=== PATIENT | female | born 1955 | race Caucasian/White ===

== ENCOUNTER → 2017-09-10 | Outpatient (CLI) | payer OTHER ==
--- NOTE | 2017-09-10 11:58 | RADIOLOGY IMAGING REPORT ---
FACILITY: [facility] PATIENT NAME: Kaila Arias : 1955 MR: [id number] V: [id number] EXAM DATE: ORDERING PHYSICIAN: ALEX BURT TECHNOLOGIST: Location: [facility] Patient: Kaila Arias : 1955 Visit/Account:[id number] Date of Sevice: 09/10/2017 HAND COMPLETE RIGHT Given history: Previous fracture with returning pain in the second and third metacarpals. COMPARISON STUDIES: NONE FINDINGS: Osseous structures: No evidence of acute or subacute fractures. There is moderate foreshortening o f the fifth metacarpal which may be developmental rather than trauma related. Joints: Joint spaces well-maintained. There is very minimal osteophytosis seen in third and fifth DIP joints. Small osteophyte seen at the head of the first metacarpal. Joints otherwise unremarkabl e. There is ulnar negative variance. Soft tissues: normal . IMPRESSION: Minimal osteoarthrosis at the first MCP and several DIP joints. Exam otherwise unremarkable. Report Dictated By: Tony Hancock MD at 09/10/2017 11:50 AM Report E-Signed By: Tony Hancock MD at 09/10/2017 11:54 AM WSN:[id number]
== END ==
LOC: RAD 10:59
PROVIDERS: ATTEND Nurse Practitioner Family
DX: M19.041 Primary osteoarthritis, right hand (principal)

== ENCOUNTER 2017-09-19 13:58 | Inpatient (IN) | payer OTHER ==
[2017-09-19] VITALS (13 sets, daily range): BP systolic 94–134; BP diastolic 69–96; Ht 167.6 cm; Wt 94.8 kg
[~2017-09-19] VITALS: Ht 167.6 cm; Wt 94.8 kg
[2017-09-19] MEDS ORDERED: NS(*) 0.9% 500 ML BAG 500 ML IV ONE (14:07)
[2017-09-19] MEDS ORDERED: NALOXONE HCL 2 MG/2 ML SYR IVP ONE (14:10)
[2017-09-19 14:21] LABS: PLATELET COUNT, AUTOMATED 213 K/uL (150-450)
--- NOTE | 2017-09-19 14:24 | EKG ---
FACILITY: [facility] PATIENT NAME: DOUG ARCINIEGA : [id number] MR: [id number] V: [id number] EXAM DATE: ORDERING PHYSICIAN: GEORGETTE MENSAH TECHNOLOGIST: WILFREDO Test Reason : OD Blood Pressure : / mmHG Vent. Rate : 093 BPM Atrial Rate : 093 BPM P-R Int : 146 ms QRS Dur : 094 ms QT Int : 384 ms P-R-T Axes : 065 040 061 degrees QTc Int : 477 ms Sinus rhythm No acute appearing findings No previous ECGs available Confirmed by DIANE MILNER ([id number] on 09/19/2017 6:17:05 PM Referred By: RODRICK Confirmed By:DIANE MILNER
--- NOTE | 2017-09-19 14:52 | ER Report ---
History and Physical Time Seen By MD: 13:59 HPI/ROS CHIEF COMPLAINT: Intentional overdose. HISTORY OF PRESENT ILLNESS: Patient is a 62-year-old female who was found by her who had stepped out of the home for approximately one hour. Patient was found to be unresponsive with shallow breathing. Patient apparently ingested 12 tablets of 5 mg each oxycodone. Patient also drank approximately 8 ounces of vodka. History is limited as patient is extremely somnolent but does arouse to noxious stimuli. Most of the history initially was to obtain from the [employer] and artificial flower maker on scene. They report that the patient apparently has an issue with alcohol and this was brought up last evening by her and argument ensued. Patient did report to EMS that she was in a "dark frame of mind " and intentionally ingested the oxycodone pills to hurt herself. Upon arrival when EMS found her she was lying on a couch there is no evidence of trauma. Patient had shallow breathing 8 mg of intranasal Narcan was given patient did have a return of breathing. On the ride from the house to the emergency department and she became somnolent again and required additional 4 mg of Narcan. In the emergency department she was only arousable to noxious stimuli so 1 mg of Narcan was given intravenously and she is much more awake and alert now. Family is currently at the bedside and family members including the patient 's and daughter. They state that the initial EMS report is correct. has been on his may need times about her drinking although states that the argument last night was not heated or particularly caustic. REVIEW OF SYSTEMS: Unable to assess secondary to patient is obtunded Allergies: Coded Allergies: tomato (Verified Allergy, Unknown, 09/19/17) Home Meds Active Scripts Thiamine Hcl (VITAMIN B-1) 100 Mg Tablet, 100 MG PO QDAY, #30 TAB Prov:ADITYA MIR MD 09/20/17 Folic Acid (FOLIC ACID) 1 Mg Tablet, 1 MG PO QDAY, #30 TAB Prov:ADITYA MIR MD 09/20/17 Reported Medications Celecoxib (CELEBREX) 200 Mg Capsule, 200 MG PO QDAY, CAPSULE 09/19/17 Duloxetine HCl (Duloxetine HCl) 60 Mg Capsule. 09/19/17 Levothyroxine Sodium (LEVOTHYROXINE SODIUM) 88 Mcg Tablet, 88 MCG PO QDAY 09/19/17 Cholecalciferol (Vitamin D3) (VITAMIN D3) 5,000 Unit Tablet, 5000 UNIT PO 09/19/17 Discontinued Reported Medications Levothyroxine Sodium (LEVOTHYROXINE SODIUM) 100 Mcg Tablet, 100 MCG PO QDAY, TAB 09/19/17 Levothyroxine Sodium (LEVOTHYROXINE SODIUM) 100 Mcg Tablet, 88 MCG PO QDAY, TAB 09/19/17 Constitutional Vital Sign - Last 24 Hours 09/19/17 09/19/17 09/19/17 09/19/17 13:58 14:06 14:08 14:13 Pulse 94 97 B/P (MAP) 141/83 (102) Pulse Ox 98 O2 Flow Rate 15.0 09/19/17 09/19/17 09/19/17 09/19/17 14:18 14:23 14:28 14:30 Pulse 94 102 104 Resp 30 29 22 B/P (MAP) 124/100 (108) Pulse Ox 100 100 99 09/19/17 09/19/17 09/19/17 09/19/17 14:33 14:38 14:43 14:45 Pulse 104 ??? 103 Resp 20 18 25 B/P (MAP) 122/80 (94) 143/121 (128) Pulse Ox 100 97 96 09/19/17 09/19/17 09/19/17 09/19/17 14:48 14:50 14:53 14:58 Pulse 99 98 97 Resp 32 16 B/P (MAP) 127/115 (119) Pulse Ox 97 97 99 09/19/17 09/19/17 09/19/17 09/19/17 15:00 15:03 15:08 15:10 Pulse 97 92 Resp 14 12 B/P (MAP) 140/69 (92) 135/88 (104) Pulse Ox 96 97 09/19/17 09/19/17 09/19/17 09/19/17 15:28 15:30 15:33 15:38 Pulse 92 89 94 Resp 28 8 19 B/P (MAP) 137/83 (101) Pulse Ox 97 91 89 09/19/17 09/19/17 09/19/17 09/19/17 15:40 15:45 15:50 16:00 Pulse 93 89 Resp 18 11 B/P (MAP) 134/83 (100) 130/82 (98) 121/86 (98) Pulse Ox 95 95 09/19/17 09/19/17 09/19/17 09/19/17 16:05 16:10 16:20 16:30 Pulse 88 92 Resp 11 13 B/P (MAP) 121/72 (88) 124/69 (87) 118/66 (83) Pulse Ox 96 96 Physical Exam General/Constitutional: Patient is awake, alert, nontoxic and in no acute respiratory distress. Head: Normocephalic and atraumatic. Eyes: Conjunctival clear, Pupils are equal and reactive to light. Extraocular muscles are intact and symmetrical. Sclera are clear and anicteric. Ears:External canals are clear. Tympanic membranes are clear with normal landmarks and light reflex. Nares: No rhinorrhea or bleeding. Turbinates are pink and moist. Oropharyngeal: Mucous membranes are moist. There is no pharyngeal erythema or exudate. There are no palatal petechiae. Uvula is midline and symmetrical. Neck: Supple, no adenopathy. Cardiovascular: Heart is regular rate and rhythm without audible murmurs, rubs or gallops. Pulmonary: Lungs are clear to auscultation bilaterally. There are no wheezes, rales, or rhonchi. Chest rise is symmetrical Abdomen: Soft, nontender, no guarding or peritoneal signs. Extremities: No gross deformities, No peripheral cyanosis. Able to move all 4 extremities. Neuro: Initial GCS: E1V2M5; GCS E4V4M6 after narcan Skin: No rashes, skin is warm dry and well perfused. Psych: Suicidal ideation, affect sad which is congruent with mood. Medical Decision Making Data Points Result Diagram: 09/20/17 0509/[id number]/17516 Laboratory Hematology Test 09/19/17 14:05 09/19/17 14:31 Magnesium Level 1.9 mg/dl (1.7-2.2) Salicylates Level < 10 mg/L Salicylate Last Dose Date unk Acetaminophen Level < 10 ug/ml Serum Alcohol 276 mg/dl Urine Color Yellow Urine Clarity Slightly-cloudy Urine pH 5.0 pH (4.8-9.5) Urine Specific [place] 1.005 Urine Protein 30 mg/dL (NEGATIVE) Urine Glucose (UA) Negative mg/dL (NEGATIVE) Urine Ketones Negative mg/dL (NEGATIVE) Urine Blood Negative (NEGATIVE) Urine Nitrite Negative (NEGATIVE) Urine Bilirubin Negative (NEGATIVE) Urine Urobilinogen Negative mg/dL (0.2-1.9) Urine Leukocyte Esterase Negative (NEGATIVE) Urine RBC <1 /HPF (0-2/HPF) Urine WBC 1 /HPF (0-5/HPF) Urine Squamous Epithelial Cells Many /LPF (NONE-FEW) Urine Bacteria Few /HPF (NONE-FEW) Urine Hyaline Casts Few /LPF (NONE-FEW) Urine Mucus Few /HPF (NONE-FEW) Urine HCG, Qualitative Negative (NEGATIVE) Urine Opiates Screen Positive Urine Barbiturates Screen Negative Ur Tricyclic Antidepressants Screen Negative Urine Phencyclidine Screen Negative Urine Amphetamines Screen Negative Urine Benzodiazepines Screen Negative Urine Cocaine Screen Negative Urine Cannabinoids Screen Negative Chemistry Test 09/19/17 14:05 09/19/17 14:31 Magnesium Level 1.9 mg/dl (1.7-2.2) Salicylates Level < 10 mg/L Salicylate Last Dose Date unk Acetaminophen Level < 10 ug/ml Serum Alcohol 276 mg/dl Urine Color Yellow Urine Clarity Slightly-cloudy Urine pH 5.0 pH (4.8-9.5) Urine Specific [place] 1.005 Urine Protein 30 mg/dL (NEGATIVE) Urine Glucose (UA) Negative mg/dL (NEGATIVE) Urine Ketones Negative mg/dL (NEGATIVE) Urine Blood Negative (NEGATIVE) Urine Nitrite Negative (NEGATIVE) Urine Bilirubin Negative (NEGATIVE) Urine Urobilinogen Negative mg/dL (0.2-1.9) Urine Leukocyte Esterase Negative (NEGATIVE) Urine RBC <1 /HPF (0-2/HPF) Urine WBC 1 /HPF (0-5/HPF) Urine Squamous Epithelial Cells Many /LPF (NONE-FEW) Urine Bacteria Few /HPF (NONE-FEW) Urine Hyaline Casts Few /LPF (NONE-FEW) Urine Mucus Few /HPF (NONE-FEW) Urine HCG, Qualitative Negative (NEGATIVE) Urine Opiates Screen Positive Urine Barbiturates Screen Negative Ur Tricyclic Antidepressants Screen Negative Urine Phencyclidine Screen Negative Urine Amphetamines Screen Negative Urine Benzodiazepines Screen Negative Urine Cocaine Screen Negative Urine Cannabinoids Screen Negative Toxicology Test 09/19/17 14:05 09/19/17 14:31 Salicylates Level < 10 mg/L Salicylate Last Dose Date unk Acetaminophen Level < 10 ug/ml Serum Alcohol 276 mg/dl Urine Opiates Screen Positive Urine Barbiturates Screen Negative Ur Tricyclic Antidepressants Screen Negative Urine Phencyclidine Screen Negative Urine Amphetamines Screen Negative Urine Benzodiazepines Screen Negative Urine Cocaine Screen Negative Urine Cannabinoids Screen Negative Urinalysis Test 09/19/17 14:31 Urine Color Yellow Urine Clarity Slightly-cloudy Urine pH 5.0 pH (4.8-9.5) Urine Specific [place] 1.005 Urine Protein 30 mg/dL (NEGATIVE) Urine Glucose (UA) Negative mg/dL (NEGATIVE) Urine Ketones Negative mg/dL (NEGATIVE) Urine Blood Negative (NEGATIVE) Urine Nitrite Negative (NEGATIVE) Urine Bilirubin Negative (NEGATIVE) Urine Urobilinogen Negative mg/dL (0.2-1.9) Urine Leukocyte Esterase Negative (NEGATIVE) Urine RBC <1 /HPF (0-2/HPF) Urine WBC 1 /HPF (0-5/HPF) Urine Squamous Epithelial Cells Many /LPF (NONE-FEW) Urine Bacteria Few /HPF (NONE-FEW) Urine Hyaline Casts Few /LPF (NONE-FEW) Urine Mucus Few /HPF (NONE-FEW) Urine HCG, Qualitative Negative (NEGATIVE) EKG/Imaging EKG Interpretation EKG shows normal sinus rhythm with no significant abnormalities Monitor Interpretation: Normal Sinus Rhythm ED Course/Re-evaluation Clinical Indication for ER IV: IV Access ED Course 09/19/2017 3:12:40 pm a paper medical detainment form was filled out by myself patient was detained on 09/19/2017 at 1454. Form was signed by the . I did speak with Dr. Pearl with regard to this patient she understands the patient is detained and will require psychiatric evaluation but would prefer that she is observed medically on the floor overnight and will accept the patient in the morning. I discussed the case with Dr. Be Mir who is accepted patient at this time for disposition. Decision to Disposition Date: September 19, 2017 Decision to Disposition Time: 17:00 Depart Departure Latest Vital Signs Vital Signs Date Time Temp Pulse Resp B/P (MAP) Pulse Ox O2 Delivery O2 Flow Rate FiO2 09/19/17 16:30 118/66 (83) 09/19/17 16:20 92 13 96 09/19/17 13:58 15.0 Impression: Primary Impression: Suicide attempt by alcohol poisoning Additional Impression: Suicide attempt by other tranquilizer drug overdose Condition: Condition Unchanged Disposition: Admitted from ER (to DR Maximiliano Mir to ICU) Referrals: TONE[facility] MIL[facility] (PCP) New Scripts Thiamine Hcl (VITAMIN B-1) 100 Mg Tablet 100 MG PO QDAY, #30 TAB Prov: ADITYA MIR MD 09/20/17 Folic Acid (FOLIC ACID) 1 Mg Tablet 1 MG PO QDAY, #30 TAB Prov: ADITYA MIR MD 09/20/17 Problem Qualifiers Primary Impression: Suicide attempt by alcohol poisoning Encounter type: initial encounter Qualified Codes: T51.92XA - Toxic effect of unspecified alcohol, intentional self-harm, initial encounter Additional Impression: Suicide attempt by other tranquilizer drug overdose Encounter type: initial encounter Qualified Codes: T43.592A - Poisoning by other antipsychotics and neuroleptics, intentional self-harm, initial encounter GEORGETTE MENSAH MD September 19, 2017 14:52
--- NOTE | 2017-09-19 15:39 | RADIOLOGY IMAGING REPORT ---
FACILITY: [facility] PATIENT NAME: Kaila Arias : 1955 MR: [id number] V: [id number] EXAM DATE: ORDERING PHYSICIAN: GEORGETTE MENSAH TECHNOLOGIST: Location[place] [facility] [place] Patient: Kaila Arias : 1955 Visit/Account:[id number] Date of Sevice: 09/19/2017 EXAMINATION: CT HEAD WITHOUT CONTRAST COMPARISON: None available HISTORY: Unresponsive. Overdose. PROCEDURE: Noncontrast CT from the vertex through the skull base. One of the following dose optimizat ion techniques was utilized in the performance of this exam: Automated exposure control; adjustment o f the mA and/or kV according to the patient's size; or use of an iterative reconstruction technique. Specific details can be referenced in the facility's radiology CT exam operational policy. FINDINGS: Brain volume: Age-appropriate. Hemorrhage/extra-axial fluid: None. Mass effect/midline shift/edema: None. Ischemia: Cox-white differentiation is preserved. Ventricles and basal cisterns: Within normal limits. Posterior fossa: Negative. Vessels: Negative. Calvarium, skull base, and scalp: Negative. Visualized sinuses and orbits: Within normal limits. IMPRESSION: Negative age-appropriate noncontrast head CT. Report Dictated By: Salas Vieira MD at 09/19/2017 3:31 PM Report E-Signed By: Salas Vieira MD at 09/19/2017 3:35 PM [id number]
[2017-09-19] MEDS ORDERED: DULO60CA7 (16:06)
[2017-09-19] MEDS ORDERED: CELE-1 PO (16:06)
[2017-09-19] MEDS ORDERED: LEVO88TA45 PO (16:06)
[2017-09-19] MEDS ORDERED: LEVO-3 PO (16:06)
[2017-09-19] MEDS ORDERED: CHOL500025 PO (16:06)
[2017-09-19] MEDS ORDERED: THIAMINE HCL 200 MG/2 ML INJ IVP ONE (18:00)
[2017-09-19] MEDS: NS(*) 0.9% 1000 ML BAG 1,000 ML IV PRN (18:08)
--- NOTE | 2017-09-19 18:16 | History & Physical ---
History of Present Illness Chief Complaint Unresponsive History of Present Illness 62yo female with PMHx significant for depression, alcoholism, degenerative osteoarthritis. History is obtained from patient and family. Apparently, the patient has been drinking fairly heavily on a daily basis for many years. Yesterday, however, the patient and her had a disagreement regarding her drinking. Her reports she actually seemed to decrease her usual drinking last night. Early today he ran an errand and came home to find her unresponsive on the couch. She had written a suicide note to state she was "sorry" for the problems she had caused (not available at this time). She had taken approximately 12 x 5mg OxyIR tablets (her 's from recent surgery) and drank almost a half gallon of vodka. She denied taking any other prescription or OTC medications. She was transported to the ER via EMS. She was given Narcan by EMS and in the ER. She has been intermittently sedated and alert. Her evaluation in the ER was rather unremarkable other than some modest elevation of her AST (266) and ALT (94). BAL was 276. Aspirin and acetaminophen were negative. She was placed on emergency nursing home and recommended for admission to the medical service until medically stable for the S unit. History Problems: (1) Osteoarthritis Status: Chronic (2) Degenerative disc disease Status: Chronic (3) Hypothyroidism Status: Chronic (4) Depression Status: Chronic (5) Alcoholism Status: Chronic (6) History of fusion of cervical spine Status: Resolved (7) History of hip replacement Status: Resolved Home Meds Reported Medications Celecoxib (CELEBREX) 200 Mg Capsule, 200 MG PO QDAY, CAPSULE 09/19/17 Duloxetine HCl (Duloxetine HCl) 60 Mg Capsule. 09/19/17 Levothyroxine Sodium (LEVOTHYROXINE SODIUM) 88 Mcg Tablet, 88 MCG PO QDAY 09/19/17 Cholecalciferol (Vitamin D3) (VITAMIN D3) 5,000 Unit Tablet, 5000 UNIT PO 09/19/17 Discontinued Reported Medications Levothyroxine Sodium (LEVOTHYROXINE SODIUM) 100 Mcg Tablet, 100 MCG PO QDAY, TAB 09/19/17 Levothyroxine Sodium (LEVOTHYROXINE SODIUM) 100 Mcg Tablet, 88 MCG PO QDAY, TAB 09/19/17 Allergies: Coded Allergies: tomato (Verified Allergy, Unknown, 09/19/17) Patient History: Aortic valve disorder BROTHER OR SISTER Arteriosclerotic cardiovascular disease FATHER FH: CABG (coronary artery bypass surgery) FATHER FHx: hypertension MOTHER Hx Smoking: No Hx Alcohol Use: Yes Social Drug Use: Never Review of Systems Psychiatric: Depression Exam Vital Signs Vital Signs Date Time Temp Pulse Resp B/P (MAP) Pulse Ox O2 Delivery O2 Flow Rate FiO2 09/19/17 17:10 88 15 133/81 (98) 95 Nasal Cannula 4 General Appearance: Alert, Awake, Other (tearful) Neuro: No Gross deficits Eyes: PERRLA ENT: Oropharynx Clear Neck: No Masses Cardiovascular: Regular Rate and Rhythm Respiratory: Clear to Auscultation Chest: No Tenderness GI: Abd Soft and Non-Tender : No CVA Tenderness Extremities: Warm, Perfused Psych: Alert & Oriented X3 Medical Decision Making Data Points Result Diagram: 09/19/17 1405 09/19/17 1405 Item Value Date Time Albumin 5.0 g/dl 09/19/17 1405 Total Protein 7.9 gm/dl 09/19/17 1405 Alkaline Phosphatase 89 U/L 09/19/17 1405 Alanine Aminotransferase (ALT/SGPT) 94 U/L H 09/19/17 1405 Aspartate Amino Transf (AST/SGOT) 266 U/L H 09/19/17 1405 Total Bilirubin 0.5 mg/dl 09/19/17 1405 Magnesium Level 1.9 mg/dl 09/19/17 1405 Calcium Level 9.6 mg/dl 09/19/17 1405 Urine Color Yellow 09/19/17 1431 Urine Clarity Slightly-cloudy 09/19/17 1431 Urine pH 5.0 pH 09/19/17 1431 Urine Specific [place] 1.005 09/19/17 1431 Urine Protein 30 mg/dL 09/19/17 1431 Urine Glucose (UA) Negative mg/dL 09/19/17 1431 Urine Ketones Negative mg/dL 09/19/17 1431 Urine Blood Negative 09/19/17 1431 Urine Nitrite Negative 09/19/17 1431 Urine Bilirubin Negative 09/19/17 1431 Urine Urobilinogen Negative mg/dL 09/19/17 1431 Urine Leukocyte Esterase Negative 09/19/17 1431 Urine RBC <1 /HPF 09/19/17 1431 Urine WBC 1 /HPF 09/19/17 1431 Urine Squamous Epithelial Cells Many /LPF H 09/19/17 1431 Urine Bacteria Few /HPF 09/19/17 1431 Urine Hyaline Casts Few /LPF 09/19/17 1431 Urine Mucus Few /HPF 09/19/17 1431 Urine HCG, Qualitative Negative 09/19/17 1431 Salicylates Level < 10 mg/L 09/19/17 1405 Acetaminophen Level < 10 ug/ml 09/19/17 1405 Serum Alcohol 276 mg/dl 09/19/17 1405 Urine Cannabinoids Screen Negative 09/19/17 1431 Urine Cocaine Screen Negative 09/19/17 1431 Urine Benzodiazepines Screen Negative 09/19/17 1431 Urine Amphetamines Screen Negative 09/19/17 1431 Urine Phencyclidine Screen Negative 09/19/17 1431 Urine Barbiturates Screen Negative 09/19/17 1431 Urine Opiates Screen Positive 09/19/17 1431 Ur Tricyclic Antidepressants Screen Negative 09/19/17 1431 EKG / Imaging EKG Interpretation Unremarkable Imaging PATIENT NAME: Kaila Arias : 1955 MR: [id number] V: [id number] EXAM DATE: ORDERING PHYSICIAN: GEORGETTE MENSAH TECHNOLOGIST: Location: [facility] Patient: Kaila Arias : 1955 Visit/Account:[id number] Date of Sevice: 09/19/2017 EXAMINATION: CT HEAD WITHOUT CONTRAST COMPARISON: None available HISTORY: Unresponsive. Overdose. PROCEDURE: Noncontrast CT from the vertex through the skull base. One of the following dose optimization techniques was utilized in the performance of this exam: Automated exposure control; adjustment of the mA and/or kV according to the patient's size; or use of an iterative reconstruction technique. Specific details can be referenced in the facility's radiology CT exam operational policy. FINDINGS: Brain volume: Age-appropriate. Hemorrhage/extra-axial fluid: None. Mass effect/midline shift/edema: None. Ischemia: Cox-white differentiation is preserved. Ventricles and basal cisterns: Within normal limits. Posterior fossa: Negative. Vessels: Negative. Calvarium, skull base, and scalp: Negative. Visualized sinuses and orbits: Within normal limits. IMPRESSION: Negative age-appropriate noncontrast head CT. Report Dictated By: Salas Vieira MD at 09/19/2017 3:31 PM Report E-Signed By: Salas Vieira MD at 09/19/2017 3:35 PM [id number] Assessment and Plan Problems: (1) Suicide attempt by alcohol poisoning Status: Acute Assessment & Plan: Combined with oxycodone. She denies any other ingestions and lab appears to support this. She was essentially unresponsive with depressed respiratory function. She has responded well to Narcan and some time. Will admit to the ICU for suicide precautions with one-to-one monitoring. Will repeat the Narcan if needed. Will have psychiatry see and plan on transfer to [facility] unit when she is medically stable. (2) Alcoholism Status: Chronic Assessment & Plan: Will place on CIWA protocol and use IV Ativan as needed. Will give B vitamins. Her AST/ALT elevation are most likely secondary to the alcohol. Watch labs. (3) Depression Status: Chronic Assessment & Plan: Will continue her Cymbalta for now. Psychiatry will see and may modify her regimen. (4) Hypothyroidism Status: Chronic Assessment & Plan: Continue her L-thyroxine. Check TSH. Venous Thromboembolism Antithrombotics Is Pt On Any Antithrombotics?: No (will use ESTRELLITA hose and mobilize) Exam Sepsis Risk: No Definite Risk Problem Qualifiers (1) Suicide attempt by alcohol poisoning: Encounter type: initial encounter Qualified Codes: T51.92XA - Toxic effect of unspecified alcohol, intentional self-harm, initial encounter DIANE MILNER MD September 19, 2017 18:16
--- NOTE | 2017-09-19 19:33 | BHS - Psychiatric Evaluation ---
ER - Title 25 MHE Evaluation Title 25 Evaluation Patient Detained By: Physician (Dr. Pantoja) Referral Source: Professional: Dr. Pantoja Date Patient Detained: September 19, 2017 Time Patient Detained: 14:21 Date Longterm Expires: September 24, 2017 Time Longterm Expires: 00:00 Legal Status: Police Hold: No Legal Status: Residence: [facility] Resident, State Resident Assessment Data Provided By: Patient HPI/ROS: From Dr. Pantoja, " Patient is a 62-year-old female who was found by her who had stepped out of the home for approximately one hour. Patient was found to be unresponsive with shallow breathing. Patient apparently ingested 12 tablets of 5 mg each oxycodone. Patient also drank approximately 8 ounces of vodka. History is limited as patient is extremely somnolent but does arouse to noxious stimuli. Most of the history initially was to obtain from the Bdc Manager and self pay collector on scene. They report that the patient apparently has an issue with alcohol and this was brought up last evening by her and argument ensued. Patient did report to EMS that she was in a "dark frame of mind" and intentionally ingested the oxycodone pills to hurt herself. Upon arrival when EMS found her she was lying on a couch there is no evidence of trauma. Patient had shallow breathing 8 mg of intranasal Narcan was given patient did have a return of breathing. On the ride from the house to the emergency department and she became somnolent again and required additional 4 mg of Narcan. In the emergency department she was only arousable to noxious stimuli so 1 mg of Narcan was given intravenously and she is much more awake and alert now. Family is currently at the bedside and family members including the patient's and daughter. They state that the initial EMS report is correct. has been on his may need times about her drinking although states that the argument last night was not heated or particularly caustic." Admit due to SI or Attempt: Yes Suicide Plan: No Plan Alcohol or Drugs Involved: Yes (Alchol "Vodka" and Pain medication "Oxycodone. ") Is Patient Info Reliable: Yes Is Collateral Info Reliable: Yes ( is bedside with her now.) Current Home Psych Meds: Cymbalta and Ativan Mental Status Exam General Appearance: Casual, Well Groomed, Good Eye Contact, Cooperative, Polite , Good Interaction Speech: Clear Mood: Dysthmic/Depressed Affect: Sad Thought Process: Other (Sleepy) Thought Content: Suicidal Ideation (Patient Sukhdev, says she was trying to take her life, states the EMS report was correct.) Cognition: Alert & Oriented-Person, Alert & Oriented-Place Memory: Immediate Insight Judgment: Poor Sleep: Hypersomnia Hallucinations: Denies Delusions: Denies Current Risk & History Current Dangerous Risk Assessm: Current Suicide Ideation (Patient had expressed to she was in "a dark frame of mind.") Past Dangerous Risk Assessm: Other (Unknown at this time.) Prior Alcohol/Drug Abuse Patient acknowledged his has been having a problem with too much alcohol. Previous Suicide Attempt: No Previous Attempt (none known at this time.) Previous Psychiatric Illness: No (Unknown at this time.) Previous Diagnosis/Treatment: Patient has reported depression. Previous Psychiatric Treatment: Yes Previous Treatment Description Patient sees Dr. Phu Malloy for counseling currently. Risk Assessment & Disposition Evaluated Risk Assessment: Risk assessment is high, patient made a lethal and intentional attempt on her life. She needs assistance to help her stabilize. Has been in the ER a few days prior related to husbands concerns about her drinking alcohol. Impression: Primary Impression: Suicide attempt by alcohol poisoning Additional Impressions: Suicide attempt by other tranquilizer drug overdose Alcoholism Depression Meets Mental Illness Req.: Yes Meets Dangerousness Req.: Yes Emergency Longterm to be: Upheld Decision Comment: Patient attempted suicide by overdose of medication and alcohol poisoning. She needs to become stable enough to come from the ICU to Behavioral health to be thoroughly evaluated and connected to appropriate resources. Her attempt to end her life was serious enough that she required hospitalization in the Intensive Care Unit (ICU) here at [facility]. Date of Decision: September 19, 2017 Time of Decision: 19:48 Patient is Medically Stable at: Yes Disposition: [facility] Problem Qualifiers Primary Impression: Suicide attempt by alcohol poisoning Encounter type: initial encounter Qualified Codes: T51.92XA - Toxic effect of unspecified alcohol, intentional self-harm, initial encounter Additional Impressions: Suicide attempt by other tranquilizer drug overdose Encounter type: initial encounter Qualified Codes: T43.592A - Poisoning by other antipsychotics and neuroleptics, intentional self-harm, initial encounter ALEKS MITCHELL LPC September 19, 2017 19:33
[2017-09-19] MEDS: LORazepam 2 MG/ML VIAL IVP PRN (19:49)
[2017-09-20] VITALS (22 sets, daily range): BP systolic 132–167; BP diastolic 83–110
[2017-09-20] MEDS: NS(*) 0.9% 1000 ML BAG 1,000 ML IV PRN (03:44)
[2017-09-20] MEDS: LORazepam 2 MG/ML VIAL IVP PRN ×2 (03:58→07:56)
[2017-09-20 05:25] LABS: PLATELET COUNT, AUTOMATED 127 K/uL (150-450)
[2017-09-20 05:32] LABS: INR 1.08
[2017-09-20] MEDS ORDERED: LEVOTHYROXINE SOD 0.088 MG TAB PO SCH (06:00)
[2017-09-20] MEDS ORDERED: DULoxetine HCL 30 MG CAPCR PO SCH (09:00)
[2017-09-20] MEDS ORDERED: THIAMINE HCL 100 MG TAB PO SCH (09:00)
[2017-09-20] MEDS ORDERED: FOLIC ACID 1 MG TAB PO SCH (09:00)
--- NOTE | 2017-09-20 09:20 | Hospitalist Depart ---
Discharge Summary Reason for Hosp/Final Diag: (1) Suicide attempt by alcohol poisoning Status: Acute Hospital Course & Plan: The patient drank alcohol combined with oxycodone in an attempt to harm herself. She denied any other ingestions and lab appeared to support this. She was essentially unresponsive with depressed respiratory function upon arrival to the ER. She responded well to Narcan. She was admitted to the ICU for suicide precautions with one-to-one monitoring. The patient improved significantly overnight and was awake and alert the following day. Psychiatry agreed to take the patient in transfer to [facility]. (2) Alcoholism Status: Chronic Hospital Course & Plan: She was placed on CIWA protocol with IV Ativan as needed. She was given B vitamins. Her AST/ALT were elevated most likely secondary to the alcohol. (3) Depression Status: Chronic Hospital Course & Plan: She was continued on Cymbalta. Psychiatry consulted and agreed to take the patient in transfer to [facility]. (4) Hypothyroidism Status: Chronic Hospital Course & Plan: She was continued on levothyroxine. A TSH was drawn and was pending at the time of discharge. Departure Weight (Pounds): 209 Result Diagram: 09/20/1751609/20/17516 Item Value Date Time Sodium Level 138 mmol/L 09/19/17 1405 Potassium Level 3.5 mmol/L 09/19/17 1405 Chloride Level 95 mmol/L L 09/19/17 1405 Carbon Dioxide Level 22 mmol/L 09/19/17 1405 Blood Urea Nitrogen 9 mg/dl 09/19/17 1405 Creatinine 1.00 mg/dl 09/19/17 1405 Glomerular Filtration Rate Calc 56.2 09/19/17 1405 Random Glucose 160 mg/dl H 09/19/17 1405 Calcium Level 9.6 mg/dl 09/19/17 1405 Magnesium Level 1.9 mg/dl 09/19/17 1405 Total Bilirubin 0.5 mg/dl 09/19/17 1405 Aspartate Amino Transf (AST/SGOT) 266 U/L H 09/19/17 1405 Alanine Aminotransferase (ALT/SGPT) 94 U/L H 09/19/17 1405 Alkaline Phosphatase 89 U/L 09/19/17 1405 Total Protein 7.9 gm/dl 09/19/17 1405 Albumin 5.0 g/dl 09/19/17 1405 Prothrombin Time 14.1 seconds 09/20/17 0517 Prothromb Time International Ratio 1.08 09/20/17 0517 Total Bilirubin 0.7 mg/dl 09/20/17 0517 Aspartate Amino Transf (AST/SGOT) 332 U/L H 09/20/17 0517 Alanine Aminotransferase (ALT/SGPT) 216 U/L H 09/20/17 0517 Alkaline Phosphatase 110 U/L 09/20/17 0517 Total Protein 5.9 gm/dl L 09/20/17 0517 Albumin 3.6 g/dl 09/20/17 0517 Salicylates Level < 10 mg/L 09/19/17 1405 Salicylate Last Dose Date unk 09/19/17 1405 Acetaminophen Level < 10 ug/ml 09/19/17 1405 Serum Alcohol 276 mg/dl 09/19/17 1405 Urine Opiates Screen Positive 09/19/17 1431 Urine Barbiturates Screen Negative 09/19/17 1431 Ur Tricyclic Antidepressants Screen Negative 09/19/17 1431 Urine Phencyclidine Screen Negative 09/19/17 1431 Urine Amphetamines Screen Negative 09/19/17 1431 Urine Benzodiazepines Screen Negative 09/19/17 1431 Urine Cocaine Screen Negative 09/19/17 1431 Urine Cannabinoids Screen Negative 09/19/17 1431 Imaging FACILITY: [facility] PATIENT NAME: Doug Arias : 1955 MR: [id number] V: [id number] EXAM DATE: ORDERING PHYSICIAN: GEORGETTE MENSAH TECHNOLOGIST: Location: [facility] [place] Patient: Doug Arias : 1955 Visit/Account:[id number] Date of Sevice: 09/19/2017 EXAMINATION: CT HEAD WITHOUT CONTRAST COMPARISON: None available HISTORY: Unresponsive. Overdose. PROCEDURE: Noncontrast CT from the vertex through the skull base. One of the following dose optimization techniques was utilized in the performance of this exam: Automated exposure control; adjustment of the mA and/or kV according to the patient's size; or use of an iterative reconstruction technique. Specific details can be referenced in the facility's radiology CT exam operational policy. FINDINGS: Brain volume: Age-appropriate. Hemorrhage/extra-axial fluid: None. Mass effect/midline shift/edema: None. Ischemia: Cox-white differentiation is preserved. Ventricles and basal cisterns: Within normal limits. Posterior fossa: Negative. Vessels: Negative. Calvarium, skull base, and scalp: Negative. Visualized sinuses and orbits: Within normal limits. IMPRESSION: Negative age-appropriate noncontrast head CT. Report Dictated By: Salas Vieira MD at 09/19/2017 3:31 PM Report E-Signed By: Salas Vieira MD at 09/19/2017 3:35 PM [id number] EKG FACILITY: [facility] PATIENT NAME: DOUG ARIAS : [id number] MR: [id number] V: [id number] EXAM DATE: ORDERING PHYSICIAN: GEORGETTE MENSAH TECHNOLOGIST: WILFREDO Test Reason : OD Blood Pressure : / mmHG Vent. Rate : 093 BPM Atrial Rate : 093 BPM P-R Int : 146 ms QRS Dur : 094 ms QT Int : 384 ms P-R-T Axes : 065 040 061 degrees QTc Int : 477 ms Sinus rhythm No acute appearing findings No previous ECGs available Confirmed by DIANE MILNER ([id number]) on 09/19/2017 6:17:05 PM Referred By: RODRICK Confirmed By:DIANE MILNER [id number] T: CARLYOVANNYT/ Condition: Improved Discharge: [facility] Time Spent: < 30 min Discharge Instructions Home Meds Reported Medications Celecoxib (CELEBREX) 200 Mg Capsule, 200 MG PO QDAY, CAPSULE 09/19/17 Duloxetine HCl (Duloxetine HCl) 60 Mg Capsule. 09/19/17 Levothyroxine Sodium (LEVOTHYROXINE SODIUM) 88 Mcg Tablet, 88 MCG PO QDAY 09/19/17 Cholecalciferol (Vitamin D3) (VITAMIN D3) 5,000 Unit Tablet, 5000 UNIT PO 09/19/17 Discontinued Reported Medications Levothyroxine Sodium (LEVOTHYROXINE SODIUM) 100 Mcg Tablet, 100 MCG PO QDAY, TAB 09/19/17 Levothyroxine Sodium (LEVOTHYROXINE SODIUM) 100 Mcg Tablet, 88 MCG PO QDAY, TAB 09/19/17 Follow up Referrals: Internal Medicine with DAVID Arreola Diet: Regular Activity: As Tolerated Copies to: TONEY MILNER Venous Thromboembolism Antithrombotics Is Pt On Any Antithrombotics?: No (will use ESTRELLITA hose and mobilize) Problem Qualifiers (1) Suicide attempt by alcohol poisoning: Encounter type: initial encounter Qualified Codes: T51.92XA - Toxic effect of unspecified alcohol, intentional self-harm, initial encounter ADITYA MILNER MD September 20, 2017 09:19
[2017-09-20] MEDS ORDERED: THIA100T58 PO (09:22)
[2017-09-20] MEDS ORDERED: FOLI-68 PO (09:22)
[2017-09-21] MEDS ORDERED: INFLUENZA VIRUS VAC 0.5 ML SYR IM ONLY ONE (09:00)
== END 2017-09-20 10:50 | DRG 918 ==
LOC: ER 14:06 → ICU 16:33
PROVIDERS: ADMIT Internal Medicine; ATTEND Internal Medicine
DX: T40.2X2A Poisoning by other opioids, intentional self-harm, initial encounter (principal); T51.0X2A Toxic effect of ethanol, intentional self-harm, initial encounter; F32.9 Major depressive disorder, single episode, unspecified; F10.220 Alcohol dependence with intoxication, uncomplicated; E03.9 Hypothyroidism, unspecified; Y92.009 Unspecified place in unspecified non-institutional (private) residence as the place of occurrence of the external cause; Y90.8 Blood alcohol level of 240 mg/100 ml or more; Z96.642 Presence of left artificial hip joint; Z98.1 Arthrodesis status; Z90.49 Acquired absence of other specified parts of digestive tract; Z90.710 Acquired absence of both cervix and uterus
CPT/HCPCS: 36415; 36416; 70450; 80305; 80320; 80329; 81001; 81025; 82040; 82247; 82310; 82374; 82435; 82565; 82947; 82948; 83735; 84075; 84132; 84155; 84295; 84443; 84450; 84460; 84520; 85025; 85610; 93005; 99285; C1758; J2060; J2310; J3411; J7030; J7040

== ENCOUNTER → 2017-09-19 | Outpatient (CLI) | payer SELFPAY ==
[~2017-09-19] MED LIST: CELE-1 PO; CHOL500025 PO; DULO60CA7; FOLI-68 PO; LEVO-3 PO; LEVO88TA45 PO; THIA100T58 PO
[2017-09-19 21:41] VITALS: BMI 33.7
== END ==
LOC: AMB 13:44
PROVIDERS: ATTEND Nurse Practitioner
DX: T40.2X2A Poisoning by other opioids, intentional self-harm, initial encounter (principal)
CPT/HCPCS: A0425; A0433

== ENCOUNTER 2017-09-20 10:50 | Inpatient (IN) | payer OTHER ==
[2017-09-19 21:41] VITALS: Ht 170.2 cm; Wt 94.8 kg
[~2017-09-20] VITALS: Ht 170.2 cm; Wt 94.8 kg
[2017-09-20] MEDS ORDERED: LORazepam 1 MG TAB ONE (11:09)
[2017-09-20 11:10] VITALS: BP 172/102
[2017-09-20] MEDS ORDERED: MAG HYD/AL HYD/SIMETH 30ML UDC PO PRN (11:20)
[2017-09-20 12:20] VITALS: BP 152/108
[2017-09-20] MEDS: LORazepam 1 MG TAB PO PRN ×4 (12:29→21:01)
[2017-09-20 16:30] VITALS: BP 152/108
[2017-09-20 18:50] VITALS: BP 148/98
[2017-09-20 20:55] VITALS: BP 162/108
[2017-09-21] VITALS (7 sets, daily range): BP systolic 142–172; BP diastolic 66–118
[2017-09-21] MEDS: LORazepam 1 MG TAB PO PRN ×7 (01:08→20:37)
[2017-09-21] MEDS: LEVOTHYROXINE SOD 0.088 MG TAB PO SCH (04:57)
[2017-09-21 06:11] LABS: PLATELET COUNT, AUTOMATED 135 K/uL (150-450)
--- NOTE | 2017-09-21 06:53 | HISTORY AND PHYSICAL ---
DATE OF ADMISSION: September 20, 2017 CHIEF COMPLAINT "I was brought here by the construction equipment operator. I took oxycodone with alcohol." HISTORY OF PRESENT ILLNESS This is the first ever psychiatric admission for this 63-year-old female who is here on an involuntary senior living initiated by the emergency room physician. The patient had a suicide attempt yesterday morning, taking 12-15 tablets of oxycodone and swallowing it down with vodka. The came home and found the patient unresponsive on the couch, very pale with agonal respirations. He called 911, and construction equipment operator administered Narcan in the field. When the patient arrived in the emergency room, she was still unresponsive, and further Narcan was administered in the ER. The patient was admitted to the intensive care unit , and was monitored overnight. The patient has a history of alcohol dependence , and in the ICU she was placed on a CIWA protocol. She did require medication with Ativan three times during her stay in ICU for withdrawal symptoms. This morning, the patient was medically stable, and was transferred to [facility]. The patient and her report that the patient has had a history of depression and has been taking duloxetine for two years. The patient has also had significant daily alcohol consumption for the past 8-10 years. The night before the patient took the overdose, she and her had a talk about her alcohol abuse. They report that this conversation was not confrontational, and they did not fight. However, the patient was feeling very remorseful the next morning, and therefore wrote suicide notes to her and to her children, and took the overdose of her 's pain medication, which was in the home due to his recent shoulder surgery. The patient said that she felt that her family would be better off without her. The patient has been taking duloxetine since August of 2015, and her dose was increased from 30 mg to 60 mg by her outpatient provider, DAVID Arreola, in February of 2017. The patient says that her duloxetine does usually help with her depressive symptoms, and she is faithful about taking it daily. She has never had any previous suicidal ideation nor any previous suicide attempts. Pt. reports social drinking with her throughout their marriage, then over past 10 years or so her drinking has become more and more problematic, with attempts to cut down, hiding her consumption from family, blackouts. She has never had any treatment for alcoholism, neither any detox admissions, nor any rehab treatment. MENTAL HEALTH HISTORY The patient has been taking duloxetine provided by her family nurse practitioner for two years. She has been seeing Phu Malloy, PHD, for therapy. Never any previous psychiatric admissions. FAMILY PSYCHIATRIC HISTORY Both parents were high-functioning alcoholics. She believes her father had depression, but was never treated. She has a nephew who has some kind of mental health issues. PAST MEDICAL HISTORY Hypothyroidism. ALLERGIES TOMATOES. SOCIAL HISTORY She was born in [place], [place], but moved to [place] at the age of 2. Her parents were . She has two sisters and one brother. She graduated high school in [place] and did attend some college classes. She met her current here in [place], and they were and moved to [place]. They have one son who is 44 and with two boys, and they also have one daughter who is 42, who is also and has two boys. Their daughter lives here in [place], and the patient describes a close relationship with her. The son and family live in [place]. The patient describes multiple psychosocial stressors over the years, including the of her btidpo-np-npy from [place]'s disease, the of her gemidby-nd-wvv from lung cancer, the of her kkxpiq-qp-pzt after a surgical procedure. VICTIM ISSUES No history of physical or sexual abuse. SUBSTANCE ABUSE HISTORY First drank alcohol in high school. She says she and her would routinely have a drink after work. However, she never considered her drinking a problem until approximately 8-10 years ago. She denies any history of using other drugs, and denies smoking cigarettes. PHYSICAL EXAMINATION Please see the emergency room physician's report as well as her record from the intensive care unit. Vital signs: Temperature 97.1, pulse 94, respiratory rate 16, blood pressure 172/102, and pulse ox is 95 on 2L nasal cannula. LABORATORY DATA CBC shows the following abnormalities: MCV 96.5, RDW 15.8, platelet count 127, 000. The rest of her CBC is within normal limits. PT was 14.1, INR was 1.08. Sodium 136, potassium 4.0, chloride 100. Creatinine 0.7. Calcium low at 8.2. AST high at 332. ALT high at 216. Total protein low at 5.9. TSH is pending. Urinalysis is within normal limits. test is negative. Tox screen was positive for opiates. Her serum alcohol upon arrival to the emergency room yesterday was 276. MENTAL STATUS EXAMINATION GENERAL APPEARANCE, BEHAVIOR AND ATTITUDE: The patient was seen in her room in bed, wearing hospital scrubs. She was mostly alert, although she had received 2 mg of Ativan about half an hour prior to our interview. She did get sleepy here and there throughout the exam, especially towards the end of our discussion , but was able to cooperate with all questions. SPEECH: Low in volume, but otherwise within normal limits. MOOD: Depressed. AFFECT: Depressed. She was tearful frequently. THOUGHT PROCESSES: Logical and goal-directed. THOUGHT CONTENT: Negative for any current suicidal ideation. She denied any auditory or visual hallucinations. She denied delusions. She denied homicidal ideation. COGNITION: She was oriented to person, place, time and situation. MEMORY: Her memory was intact for immediate, recent and remote recall. INTELLIGENCE: Average, based on interview. INSIGHT AND JUDGMENT: Fair. DIAGNOSES PER DSM-V 1. Persistent depressive disorder. 2. Status post suicide attempt by overdose. 3. Alcohol use disorder, severe. 4. Alcohol withdrawal. PLAN The patient is admitted to [facility] on an involuntary senior living. She will be maintained on suicide and elopement precautions. She will be detoxed using Ativan and the NWI protocol. She will attend individual and group therapy with a focus on psychoeducation regarding depression and alcohol abuse and strategies for sobriety. She will continue her duloxetine at 60 mg daily. We will follow her chemistry panel, especially want to monitor her platelet count and liver enzymes, which are all currently abnormal. Estimated length of stay will be approximately five days. MTDD
[2017-09-21] MEDS: DULoxetine HCL 30 MG CAPCR PO SCH (07:49)
[2017-09-21] MEDS: MULTIVITAMINS PO SCH (07:49)
[2017-09-21] MEDS: THIAMINE HCL 100 MG TAB PO SCH (07:49)
[2017-09-21] MEDS: FOLIC ACID 1 MG TAB PO SCH (07:49)
[2017-09-21] MEDS ORDERED: cloNIDine HCL 0.1 MG TAB PO ONE ×2 (08:10→17:30)
--- NOTE | 2017-09-21 14:45 | BHS Progress Note ---
[facility] - Subjective Progress Notes Subjective Pt seen in treatment team meeting held in her room, with her present. Pt still scoring on NWI protocol, but scores are slowly decreasing-- last check she only needed 1 mg of ativan and will not need re-check for 4 hours. Pt still sedated from the ativan, but always easy to arouse and answers questions appropriately-- no evidence of delerium tremens. Pt and interacting well. Pt denies SI today and continues to verbalize desire to stop drinking. Pt's platelet count today is 135, AST and ALT are down considerably today from the 300's to the 100's. Will continue NWI protocol. Hopefully pt will be able to start therapy and groups tomorrow-- at this time she continues to be too medically ill to do so. Suicidal Ideation: None Homicidal Ideation: None [facility] - Objective Physical Exam Vital Signs Vital Signs 09/21/17 09/21/17 04:50 13:00 Temp 98.7 Pulse 89 Resp 15 B/P (MAP) 142/88 (106) Pulse Ox 89 O2 Delivery Room Air O2 Flow Rate 2.0 Muscle Strength and Tone: Other (weak, able to ambulate to bathroom with assistance.) Gait and Station: Unsteady [facility] Medications Reviewed: Side Effects, Benefits of Medication, Risks Allergies Reviewed: Yes Mental Status Exam General Appearance: Unkept, Other (ill, in bed, sedated but wakes to voice) Speech: Delayed (low volume) Mood: Dysthmic/Depressed Affect: Sad Thought Process: Organized, Logical, Goal Directed Thought Content: No Suicidal Ideation, No Homicidal Ideation, No Delusions, No Auditory Halllucinations, No Visual Hallucinations, No Thought Broadcasting, No Ideas of Reference, No Obsessions, No Compulsions, No Other Sensorium: Clear Cognition: Alert & Oriented-Person, Alert & Oriented-Place, Alert & Oriented- Time Memory: Immediate, Recent, Remote Intelligence: Average Insight Judgment: Fair Result Diagram: 09/21/1760209/21/17602 [facility] Assessment and Plan Jayq-im-Ghsd Encounter Date: September 21, 2017 Ojxv-cl-Wwmo Encounter Time: 10:00 [facility] Plan: Admit to Unit, Necessary Precautions, Individual/Group Therapy, Admin /Titrate Meds, Educate Patient Tobacco Medications: Not Appropriate Condition Multpiple Antipsychotics Used: No Problems: (1) Alcohol withdrawal (2) Suicide attempt by other tranquilizer drug overdose Status: Acute (3) Persistent depressive disorder (4) Alcohol use disorder, severe, dependence DANIELA MONTOYA MD September 21, 2017 14:45
[2017-09-21] MEDS: IBUPROFEN 600 MG TAB PO PRN (17:30)
[2017-09-22] VITALS (7 sets, daily range): BP systolic 137–164; BP diastolic 83–102
[2017-09-22] MEDS: LORazepam 1 MG TAB PO PRN ×7 (03:27→23:03)
[2017-09-22] MEDS: IBUPROFEN 600 MG TAB PO PRN (06:08)
[2017-09-22] MEDS: LEVOTHYROXINE SOD 0.088 MG TAB PO SCH (06:08)
[2017-09-22] MEDS: DULoxetine HCL 30 MG CAPCR PO SCH (08:22)
[2017-09-22] MEDS: MULTIVITAMINS PO SCH (08:22)
[2017-09-22] MEDS: THIAMINE HCL 100 MG TAB PO SCH (08:22)
[2017-09-22] MEDS: FOLIC ACID 1 MG TAB PO SCH (08:22)
--- NOTE | 2017-09-22 11:56 | BHS Progress Note ---
S - Subjective Progress Notes Subjective Pt seen in team room with staff. Pt is slowly improving-- able to ambulate better. Still needing ativan-- was medicated with 1 mg this am as per [facility] protocol. We discussed her history with alcohol, with previous attempts to cut down or get help. She says, "About 6 years ago I started turning yellow, so I quit for 2 years." She is ambivalent about AA, but willing to consider getting involved in it. Also discussed multiple psychosocial stressors, mostly involving her family; she tends to be "the rock" and "the fixer" for everyone else. Discussed need to focus on herself and her own wellness, let the others worry about themselves, etc... Pt denies SI today but still depressed with a lot of guilt and shame. Pt able to participate in some psychoeducation today, although she is still needing a lot of rest due to sedative effects of ativan. Suicidal Ideation: None Homicidal Ideation: None [facility] - Objective Physical Exam Vital Signs Vital Signs 09/22/17 09/22/17 06:05 08:10 Temp 97.7 Pulse 86 Resp 15 B/P (MAP) 152/96 (114) Pulse Ox 94 O2 Delivery Nasal Cannula O2 Flow Rate 2.0 Muscle Strength and Tone: Other (weak, able to ambulate to bathroom with assistance.) Gait and Station: Unsteady [facility] Medications Reviewed: Side Effects, Benefits of Medication, Risks Allergies Reviewed: Yes Mental Status Exam General Appearance: Cooperative, Polite, Good Interaction, Unkept, Tearful Speech: Delayed (low volume) Mood: Dysthmic/Depressed Affect: Sad, Tearful Thought Process: Organized, Logical, Goal Directed Thought Content: No Suicidal Ideation, No Homicidal Ideation, No Delusions, No Auditory Halllucinations, No Visual Hallucinations, No Thought Broadcasting, No Ideas of Reference, No Obsessions, No Compulsions, No Other Sensorium: Clear Cognition: Alert & Oriented-Person, Alert & Oriented-Place, Alert & Oriented- Time Memory: Immediate, Recent, Remote Intelligence: Average Insight Judgment: Fair Result Diagram: 09/21/1760209/21/17602 [facility] Assessment and Plan Wfas-be-Cbva Encounter Date: September 22, 2017 Zsnz-[id number] Encounter Time: 09:00 [facility] Plan: Admit to Unit, Necessary Precautions, Individual/Group Therapy, Admin /Titrate Meds, Educate Patient Tobacco Medications: Not Appropriate Condition Multpiple Antipsychotics Used: No Problems: (1) Alcohol withdrawal (2) Suicide attempt by other tranquilizer drug overdose Status: Acute (3) Persistent depressive disorder (4) Alcohol use disorder, severe, dependence DANIELA MONTOYA MD September 22, 2017 11:56
[2017-09-23 04:00] VITALS: BP 154/91
[2017-09-23] MEDS: LORazepam 1 MG TAB PO PRN ×3 (04:10→22:00)
[2017-09-23] MEDS: LEVOTHYROXINE SOD 0.088 MG TAB PO SCH (05:34)
[2017-09-23 08:05] VITALS: BP 138/88
[2017-09-23] MEDS: DULoxetine HCL 30 MG CAPCR PO SCH (08:06)
[2017-09-23] MEDS: FOLIC ACID 1 MG TAB PO SCH (08:06)
[2017-09-23] MEDS: THIAMINE HCL 100 MG TAB PO SCH (08:07)
[2017-09-23] MEDS: MULTIVITAMINS PO SCH (08:07)
[2017-09-23] MEDS: PATIENT'S OWN MED TP SCH (10:06)
[2017-09-23 12:05] VITALS: BP 142/94
--- NOTE | 2017-09-23 14:19 | BHS Progress Note ---
[facility] - Subjective Progress Notes Subjective Pt seen in treatment team with staff, including staff from [facility], as well as pt's . Pt looking better today, more alert, better eye contact, better grooming, steadier on her feet. Last Ativan was at 0400 this am. Pt still frequently tearful, participating well, asking good questions re when she might be discharged, what are treatment options as out-patient... Pt was ambivalent about having a factory representative from come up to visit with her, but she did agree as we explained we will have some ladies who have something in common with her-- she had previously attended one meeting will mostly young men, and she had a negative experience there... Pt tolerating meds well, will continue duloxetine at current dose. Will continue NWI protocol. Check labs in am. Suicidal Ideation: None Homicidal Ideation: None [facility] - Objective Physical Exam Vital Signs Vital Signs 09/23/17 09/23/17 08:05 12:05 Temp 97.7 Pulse 92 Resp 18 B/P (MAP) 142/94 (110) Pulse Ox 96 O2 Delivery Room Air O2 Flow Rate 2.0 Muscle Strength and Tone: WNL Gait and Station: Steady [facility] Medications Reviewed: Side Effects, Benefits of Medication, Risks Allergies Reviewed: Yes Mental Status Exam General Appearance: Well Groomed, Good Eye Contact, Cooperative, Polite, Good Interaction, Tearful Speech: Clear, Spontaneous, Normal Rate, Normal Rhythm, Normal Volume, Normal Tone Mood: Dysthmic/Depressed Affect: Sad, Tearful Thought Process: Organized, Logical, Goal Directed Thought Content: No Suicidal Ideation, No Homicidal Ideation, No Delusions, No Auditory Halllucinations, No Visual Hallucinations, No Thought Broadcasting, No Ideas of Reference, No Obsessions, No Compulsions, No Other Sensorium: Clear Cognition: Alert & Oriented-Person, Alert & Oriented-Place, Alert & Oriented- Time Memory: Immediate, Recent, Remote Intelligence: Average Insight Judgment: Fair Result Diagram: [id number]/21/1760209/[id number]/17602 [facility] Assessment and Plan Husb-ar-Ccbn Encounter Date: September 23, 2017 Ozox-il-Tvws Encounter Time: 10:00 [facility] Plan: Admit to Unit, Necessary Precautions, Individual/Group Therapy, Admin /Titrate Meds, Educate Patient Tobacco Medications: Not Appropriate Condition Multpiple Antipsychotics Used: No Problems: (1) Alcohol withdrawal (2) Suicide attempt by other tranquilizer drug overdose Status: Acute (3) Persistent depressive disorder (4) Alcohol use disorder, severe, dependence DANIELA MONTOYA MD September 23, 2017 14:19
[2017-09-23 16:40] VITALS: BP 138/86
[2017-09-23 20:40] VITALS: BP 150/82
[2017-09-24 03:32] VITALS: BP 133/82
[2017-09-24] MEDS: LEVOTHYROXINE SOD 0.088 MG TAB PO SCH (05:17)
[2017-09-24 05:34] VITALS: BP 120/84
[2017-09-24 06:22] LABS: PLATELET COUNT, AUTOMATED 142 K/uL (150-450)
[2017-09-24] MEDS: THIAMINE HCL 100 MG TAB PO SCH (08:25)
[2017-09-24] MEDS: DULoxetine HCL 30 MG CAPCR PO SCH (08:25)
[2017-09-24] MEDS: PATIENT'S OWN MED TP SCH (08:25)
[2017-09-24] MEDS: MULTIVITAMINS PO SCH (08:25)
[2017-09-24] MEDS: FOLIC ACID 1 MG TAB PO SCH (09:00)
--- NOTE | 2017-09-24 09:32 | BHS Discharge Summary ---
[facility] Discharge Summary Amwr-cl-Qpzw Encounter Date: September 24, 2017 Ubkx-zw-Ppsg Encounter Time: 08:00 Reason-Hosp/Final Diag (DSM-V): (1) Alcohol use disorder, severe, dependence Hospital Course & Plan: Pt was admitted to [facility] and alcohol detox was completed using ativan. There were no complications. Several family meetings were held, is very supportive. Pt met with members of AA and that meeting went very well-- pt made a plan to attend a meeting on the night of discharge with those individuals. Pt will follow up with RYAN Fink, and will continue her duloxetine as prescribed by Carolyn Fermin. Pt was free of SI throughout her hospital stay. She participated actively in all groups. She was bright in affect and highly motivated on discharge. She and stated guns are locked up at home and only has the keys. (2) Persistent depressive disorder (3) Alcohol withdrawal Status: Resolved (4) Suicide attempt by other tranquilizer drug overdose Status: Acute Physical Exam Latest Vital Signs Vital Signs 09/24/17 03:32 Temp 98.2 Pulse 91 Resp 15 B/P (MAP) 133/82 (99) Pulse Ox 96 O2 Delivery Nasal Cannula O2 Flow Rate 2.0 Mental Status Exam General Appearance: Casual, Well Groomed, Good Eye Contact, Cooperative, Polite , Good Interaction Speech: Clear, Spontaneous, Normal Rate, Normal Rhythm, Normal Volume, Normal Tone Mood: Euthymic Affect: Full and Appropriate Thought Process: Organized, Logical, Goal Directed Thought Content: No Suicidal Ideation, No Homicidal Ideation, No Delusions, No Auditory Halllucinations, No Visual Hallucinations, No Thought Broadcasting, No Ideas of Reference, No Obsessions, No Compulsions, No Other Sensorium: Clear Cognition: Alert & Oriented-Person, Alert & Oriented-Place, Alert & Oriented- Time Memory: Immediate, Recent, Remote Intelligence: Average Insight Judgment: Fair Departure Result Diagram: 09/24/17 0616 09/24/17 0616 09/24/17: AST 49, ALT 80. Condition: Improved Discharge to: Home Discharge Instructions Home Meds Active Scripts Thiamine Hcl (VITAMIN B-1) 100 Mg Tablet, 100 MG PO QDAY, #30 TAB Prov:ADITYA MILNER MD 09/20/17 Folic Acid (FOLIC ACID) 1 Mg Tablet, 1 MG PO QDAY, #30 TAB Prov:ADITYA MILNER MD 09/20/17 Reported Medications Celecoxib (CELEBREX) 200 Mg Capsule, 200 MG PO QDAY, CAPSULE 09/19/17 Duloxetine HCl (Duloxetine HCl) 60 Mg Capsule. 09/19/17 Levothyroxine Sodium (LEVOTHYROXINE SODIUM) 88 Mcg Tablet, 88 MCG PO QDAY 09/19/17 Cholecalciferol (Vitamin D3) (VITAMIN D3) 5,000 Unit Tablet, 5000 UNIT PO 09/19/17 Discontinued Reported Medications Levothyroxine Sodium (LEVOTHYROXINE SODIUM) 100 Mcg Tablet, 100 MCG PO QDAY, TAB 09/19/17 Levothyroxine Sodium (LEVOTHYROXINE SODIUM) 100 Mcg Tablet, 88 MCG PO QDAY, TAB 09/19/17 Multpiple Antipsychotics Used: No Diet: Regular DANIELA MONTOYA MD September 24, 2017 09:31
== END 2017-09-24 10:44 | disposition home or self-care (01) | DRG 897 ==
LOC: BHS 10:50
PROVIDERS: ADMIT Psychiatry & Neurology Psychiatry; ATTEND Psychiatry & Neurology Psychiatry
DX: F10.230 Alcohol dependence with withdrawal, uncomplicated (principal); R45.851 Suicidal ideations; F34.1 Dysthymic disorder; T40.2X2A Poisoning by other opioids, intentional self-harm, initial encounter; T51.0X2A Toxic effect of ethanol, intentional self-harm, initial encounter; Y92.009 Unspecified place in unspecified non-institutional (private) residence as the place of occurrence of the external cause; Z81.1 Family history of alcohol abuse and dependence; Z73.3 Stress, not elsewhere classified; Z90.49 Acquired absence of other specified parts of digestive tract; Z90.710 Acquired absence of both cervix and uterus
CPT/HCPCS: 36415; 82040; 82247; 82310; 82374; 82435; 82565; 82947; 84075; 84132; 84155; 84295; 84450; 84460; 84520; 85025

== ENCOUNTER 2018-11-16 18:11 | Emergency (ER) | payer OTHER ==
[2017-09-19 21:41] VITALS: Wt 90.7 kg
[~2018-11-16 18:11] MED LIST changes: +NALOXONE HCL 0.4 MG/ML VIAL ONE; +NALOXONE HCL 2 MG/2 ML SYR ONE
[2018-11-16] MEDS ORDERED: LORazepam 2 MG/ML VIAL ONE (18:25)
[2018-11-16 18:31] LABS: PLATELET COUNT, AUTOMATED 221 K/uL (150-450)
[2018-11-16] MEDS ORDERED: LORazepam 2 MG/ML VIAL IVP ONE (18:35)
[2018-11-16] MEDS ORDERED: D5W VISIV IVP ONE (19:00)
[2018-11-16] MEDS ORDERED: LORAZEPAM IVP ONE (19:00)
--- NOTE | 2018-11-16 19:09 | RADIOLOGY IMAGING REPORT ---
FACILITY: [facility] PATIENT NAME: Kaila Arias : 1955 MR: [id number] V: [id number] EXAM DATE: ORDERING PHYSICIAN: JOLENE WASHINGTON TECHNOLOGIST: [place] [facility] [place]a Ari[place] : 1955 Visit/Account:[id number] Date of Sevice: 11/16/2018 CHEST SINGLE AP INDICATION: ET tube placement. COMPARISON: None available FINDINGS: There is a nasogastric tube present with the tip at the level of the GE junction. Staple line is seen at the level of the GE junction, question Adriana fundoplication versus gastric bypass. An endotrache al tube is not visualized. There is no focal infiltrate or lobar consolidation. There is no pneumothorax or pleural effusion. IMPRESSION: 1. An endotracheal tube is not visualized. 2. The nasogastric tube is positioned above the GE junction. There are postsurgical changes at that l yobani, question Adriana fundoplication versus gastric bypass Report Dictated By: Tanvir Barrera at 11/16/2018 7:01 PM Report E-Signed By: Tanvir Barrera at 11/16/2018 7:04 PM WSN:[id number]
[2018-11-16] MEDS ORDERED: NS(*) 0.9% 1000 ML BAG 1,000 ML IV ONE ×2 (19:15)
[2018-11-16] MEDS ORDERED: ETOMIDATE 20 MG/10 ML VIAL IVP ONE (19:15)
[2018-11-16] MEDS ORDERED: SUCCINYLCHOL CHL 200MG/10ML VL IVP ONE (19:15)
--- NOTE | 2018-11-16 19:33 | ER Report ---
History and Physical Time Seen By MD: 18:00 HPI/ROS CHIEF COMPLAINT: Alcohol and medication overdose HISTORY OF PRESENT ILLNESS: Patient is a 63-year-old female here with complaints of medication and alcohol overdose. Patient reportedly took approximately 44 tramadol with an alcohol level of 300. Patient reportedly left suicide notes at the house. Patient does have a history of prior suicide attempts with alcohol and pain medication. Patient was intubated by dayshift provider at time of arrival due to inability to protect airway. REVIEW OF SYSTEMS: Unable to complete due to altered mental status Allergies: Coded Allergies: tomato (Verified Allergy, Unknown, 09/19/17) Home Meds Reported Medications Celecoxib (CELEBREX) 200 Mg Capsule, 200 MG PO QDAY, CAPSULE 09/19/17 Duloxetine HCl (Duloxetine HCl) 60 Mg Capsule. 09/19/17 Levothyroxine Sodium (LEVOTHYROXINE SODIUM) 88 Mcg Tablet, 88 MCG PO QDAY 09/19/17 Cholecalciferol (Vitamin D3) (VITAMIN D3) 5,000 Unit Tablet, 5000 UNIT PO 09/19/17 Hx Smoking: No Smoking Status: Never Smoker Exposure to Second Hand Smoke?: No Hx Substance Use Disorder: Yes (Alcohol) Hx Alcohol Use: Yes Constitutional Vital Sign - Last 24 Hours 11/16/18 11/16/18 11/16/18 11/16/18 18:15 18:15 18:16 18:18 Pulse 104 96 Resp 10 14 B/P (MAP) 139/91 (107) Pulse Ox 100 100 O2 Flow Rate 10.0 11/16/18 11/16/18 11/16/18 11/16/18 18:20 18:21 18:24 18:25 Pulse 91 85 Resp 15 17 B/P (MAP) 125/85 (98) 128/88 (101) Pulse Ox 100 100 11/16/18 11/16/18 11/16/18 11/16/18 18:27 18:30 18:33 18:35 Pulse 86 96 93 Resp 14 20 9 B/P (MAP) 126/83 (97) 121/85 (97) Pulse Ox 99 98 100 11/16/18 11/16/18 11/16/18 11/16/18 18:36 18:39 18:40 18:42 Pulse 93 90 91 Resp 18 7 9 B/P (MAP) 124/87 (99) Pulse Ox 100 100 100 11/16/18 11/16/18 11/16/18 11/16/18 18:45 18:48 18:48 18:50 Pulse 91 88 Resp 11 16 B/P (MAP) 125/81 (96) 116/76 (89) Pulse Ox 96 96 FiO2 30.0 11/16/18 11/16/18 11/16/18 11/16/18 18:51 18:54 18:55 18:57 Pulse 91 90 89 Resp 12 31 19 B/P (MAP) 114/70 (85) Pulse Ox 95 96 96 11/16/18 11/16/18 11/16/18 11/16/18 19:00 19:03 19:05 19:06 Pulse 89 88 88 Resp 17 12 17 B/P (MAP) 106/65 (79) 104/66 (79) Pulse Ox 95 96 95 11/16/18 11/16/18 11/16/18 11/16/18 19:09 19:10 19:12 19:15 Pulse 87 88 88 Resp 18 18 18 B/P (MAP) 101/63 (76) 101/62 (75) Pulse Ox 95 95 95 11/16/18 11/16/18 11/16/18 11/16/18 19:18 19:20 19:21 19:24 Pulse 90 89 101 Resp 17 17 15 B/P (MAP) 102/64 (77) Pulse Ox 95 94 91 11/16/18 11/16/18 11/16/18 11/16/18 19:25 19:27 19:30 19:33 Pulse 96 89 86 Resp 13 18 18 B/P (MAP) 107/72 (84) 112/67 (82) Pulse Ox 94 93 94 11/16/18 11/16/18 11/16/18 11/16/18 19:34 19:35 19:36 19:39 Temp 98.6 Pulse 60 87 87 Resp 12 18 18 B/P (MAP) 110/61 101/61 (74) Pulse Ox 93 94 93 O2 Delivery Non-Rebreather 11/16/18 11/16/18 19:40 19:42 Pulse 87 Resp 14 B/P (MAP) 97/58 (71) Pulse Ox 94 Physical Exam General Appearance: Sedated on Ativan infusion, endotracheal tube in place, unresponsive Eyes: Pupils equal and round no pallor or injection. ENT, Mouth: Endotracheal tube in place Respiratory: There are no retractions, lungs are clear to auscultation. Cardiovascular: Regular rate and rhythm. Gastrointestinal: Abdomen is soft and non tender, no masses, bowel sounds normal. Neurological: Unresponsive, sedated Skin: Warm and dry, no rashes. Musculoskeletal: Neck is supple non tender. Extremities are nontender, nonswollen and have full range of motion. [ ] DIFFERENTIAL DIAGNOSIS: After history and physical exam differential diagnosis was considered for alcohol overdose, polysubstance abuse, trauma Medical Decision Making Data Points Result Diagram: 11/16/18 1815 11/16/18 1815 Laboratory Hematology Test 11/16/18 18:15 11/16/18 18:24 11/16/18 19:02 Red Blood Count 4.74 M/uL (4.17-5.56) Mean Corpuscular Volume 94.9 fL (80.0-96.0) Mean Corpuscular Hemoglobin 31.7 pg (26.0-33.0) Mean Corpuscular Hemoglobin Concent 33.4 g/dL (32.0-36.0) Red Cell Distribution Width 14.6 % (11.5-14.5) Mean Platelet Volume 8.0 fL (7.2-11.1) Neutrophils (%) (Auto) 57.7 % (39.4-72.5) Lymphocytes (%) (Auto) 33.2 % (17.6-49.6) Monocytes (%) (Auto) 7.1 % (4.1-12.4) Eosinophils (%) (Auto) 1.1 % (0.4-6.7) Basophils (%) (Auto) 0.9 % (0.3-1.4) Nucleated RBC Relative Count (auto) 0.0 /100WBC Neutrophils # (Auto) 3.9 K/uL (2.0-7.4) Lymphocytes # (Auto) 2.3 K/uL (1.3-3.6) Monocytes # (Auto) 0.5 K/uL (0.3-1.0) Eosinophils # (Auto) 0.1 K/uL (0.0-0.5) Basophils # (Auto) 0.1 K/uL (0.0-0.1) Nucleated RBC Absolute Count (auto) 0.00 K/uL Sodium Level 141 mmol/L (137-145) Potassium Level 3.9 mmol/L (3.5-5.0) Chloride Level 106 mmol/L (98-107) Carbon Dioxide Level 22 mmol/L (22-31) Blood Urea Nitrogen 15 mg/dl (7-18) Creatinine 0.80 mg/dl (0.52-1.04) Glomerular Filtration Rate Calc > 60.0 Random Glucose 110 mg/dl (75-110) Calcium Level 8.9 mg/dl (8.4-10.2) Magnesium Level 2.2 mg/dl (1.7-2.2) Total Bilirubin 0.2 mg/dl (0.2-1.3) Aspartate Amino Transf (AST/SGOT) 107 U/L (0-35) Alanine Aminotransferase (ALT/SGPT) 48 U/L (0-56) Alkaline Phosphatase 65 U/L (0-126) Total Protein 7.0 g/dl (6.3-8.2) Albumin 4.5 g/dl (3.5-5.0) Thyroid Stimulating Hormone (TSH) 2.95 uIU/ml (0.46-4.68) Salicylates Level < 10 mg/L Salicylate Last Dose Date unk Acetaminophen Level < 10 ug/ml Serum Alcohol 300 mg/dl Urine Color Colorless Urine Clarity Clear Urine pH 6.0 pH (4.8-9.5) Urine Specific Crook 1.002 Urine Protein Negative mg/dL (NEGATIVE) Urine Glucose (UA) Negative mg/dL (NEGATIVE) Urine Ketones Negative mg/dL (NEGATIVE) Urine Blood Negative (NEGATIVE) Urine Nitrite Negative (NEGATIVE) Urine Bilirubin Negative (NEGATIVE) Urine Urobilinogen Negative mg/dL (0.2-1.9) Urine Leukocyte Esterase Negative (NEGATIVE) Urine RBC None /HPF (0-2/HPF) Urine WBC None /HPF (0-5/HPF) Urine Squamous Epithelial Cells None /LPF (</=FEW) Urine Bacteria Few /HPF (NONE-FEW) Urine Mucus None /HPF (NONE-FEW) Urine HCG, Qualitative Negative (NEGATIVE) Urine Opiates Screen Negative Urine Barbiturates Screen Negative Ur Tricyclic Antidepressants Screen Negative Urine Phencyclidine Screen Negative Urine Amphetamines Screen Negative Urine Benzodiazepines Screen Negative Urine Cocaine Screen Negative Urine Cannabinoids Screen Negative Blood Gas Puncture Site Right radial Blood Gas Patient Temperature 36.5 DEGREES Arterial Blood pH 7.29 (7.35-7.45) Arterial Blood Partial Pressure CO2 46 mmHg (32-37) Arterial Blood Partial Pressure O2 149 mmHg (60-80) Arterial Blood HCO3 22 mmol/L (20-26) Arterial Blood Oxygen Saturation 99 % (92-100) Arterial Blood Base Excess -5.0 mmol/L Hernando Test Acceptable Oxygen Liters/Minute 50 Chemistry Test 11/16/18 18:15 11/16/18 18:24 11/16/18 19:02 White Blood Count 6.8 k/uL (4.5-11.0) Red Blood Count 4.74 M/uL (4.17-5.56) Hemoglobin 15.0 g/dL (12.0-16.0) Hematocrit 45.0 % (34.0-47.0) Mean Corpuscular Volume 94.9 fL (80.0-96.0) Mean Corpuscular Hemoglobin 31.7 pg (26.0-33.0) Mean Corpuscular Hemoglobin Concent 33.4 g/dL (32.0-36.0) Red Cell Distribution Width 14.6 % (11.5-14.5) Platelet Count 221 K/uL (150-450) Mean Platelet Volume 8.0 fL (7.2-11.1) Neutrophils (%) (Auto) 57.7 % (39.4-72.5) Lymphocytes (%) (Auto) 33.2 % (17.6-49.6) Monocytes (%) (Auto) 7.1 % (4.1-12.4) Eosinophils (%) (Auto) 1.1 % (0.4-6.7) Basophils (%) (Auto) 0.9 % (0.3-1.4) Nucleated RBC Relative Count (auto) 0.0 /100WBC Neutrophils # (Auto) 3.9 K/uL (2.0-7.4) Lymphocytes # (Auto) 2.3 K/uL (1.3-3.6) Monocytes # (Auto) 0.5 K/uL (0.3-1.0) Eosinophils # (Auto) 0.1 K/uL (0.0-0.5) Basophils # (Auto) 0.1 K/uL (0.0-0.1) Nucleated RBC Absolute Count (auto) 0.00 K/uL Glomerular Filtration Rate Calc > 60.0 Calcium Level 8.9 mg/dl (8.4-10.2) Magnesium Level 2.2 mg/dl (1.7-2.2) Total Bilirubin 0.2 mg/dl (0.2-1.3) Aspartate Amino Transf (AST/SGOT) 107 U/L (0-35) Alanine Aminotransferase (ALT/SGPT) 48 U/L (0-56) Alkaline Phosphatase 65 U/L (0-126) Total Protein 7.0 g/dl (6.3-8.2) Albumin 4.5 g/dl (3.5-5.0) Thyroid Stimulating Hormone (TSH) 2.95 uIU/ml (0.46-4.68) Salicylates Level < 10 mg/L Salicylate Last Dose Date unk Acetaminophen Level < 10 ug/ml Serum Alcohol 300 mg/dl Urine Color Colorless Urine Clarity Clear Urine pH 6.0 pH (4.8-9.5) Urine Specific Crook 1.002 Urine Protein Negative mg/dL (NEGATIVE) Urine Glucose (UA) Negative mg/dL (NEGATIVE) Urine Ketones Negative mg/dL (NEGATIVE) Urine Blood Negative (NEGATIVE) Urine Nitrite Negative (NEGATIVE) Urine Bilirubin Negative (NEGATIVE) Urine Urobilinogen Negative mg/dL (0.2-1.9) Urine Leukocyte Esterase Negative (NEGATIVE) Urine RBC None /HPF (0-2/HPF) Urine WBC None /HPF (0-5/HPF) Urine Squamous Epithelial Cells None /LPF (</=FEW) Urine Bacteria Few /HPF (NONE-FEW) Urine Mucus None /HPF (NONE-FEW) Urine HCG, Qualitative Negative (NEGATIVE) Urine Opiates Screen Negative Urine Barbiturates Screen Negative Ur Tricyclic Antidepressants Screen Negative Urine Phencyclidine Screen Negative Urine Amphetamines Screen Negative Urine Benzodiazepines Screen Negative Urine Cocaine Screen Negative Urine Cannabinoids Screen Negative Blood Gas Puncture Site Right radial Blood Gas Patient Temperature 36.5 DEGREES Arterial Blood pH 7.29 (7.35-7.45) Arterial Blood Partial Pressure CO2 46 mmHg (32-37) Arterial Blood Partial Pressure O2 149 mmHg (60-80) Arterial Blood HCO3 22 mmol/L (20-26) Arterial Blood Oxygen Saturation 99 % (92-100) Arterial Blood Base Excess -5.0 mmol/L Hernando Test Acceptable Oxygen Liters/Minute 50 Toxicology Test 11/16/18 18:15 11/16/18 18:24 Salicylates Level < 10 mg/L Salicylate Last Dose Date unk Acetaminophen Level < 10 ug/ml Serum Alcohol 300 mg/dl Urine Opiates Screen Negative Urine Barbiturates Screen Negative Ur Tricyclic Antidepressants Screen Negative Urine Phencyclidine Screen Negative Urine Amphetamines Screen Negative Urine Benzodiazepines Screen Negative Urine Cocaine Screen Negative Urine Cannabinoids Screen Negative Urinalysis Test 11/16/18 18:24 Urine Color Colorless Urine Clarity Clear Urine pH 6.0 pH (4.8-9.5) Urine Specific Crook 1.002 Urine Protein Negative mg/dL (NEGATIVE) Urine Glucose (UA) Negative mg/dL (NEGATIVE) Urine Ketones Negative mg/dL (NEGATIVE) Urine Blood Negative (NEGATIVE) Urine Nitrite Negative (NEGATIVE) Urine Bilirubin Negative (NEGATIVE) Urine Urobilinogen Negative mg/dL (0.2-1.9) Urine Leukocyte Esterase Negative (NEGATIVE) Urine RBC None /HPF (0-2/HPF) Urine WBC None /HPF (0-5/HPF) Urine Squamous Epithelial Cells None /LPF (</=FEW) Urine Bacteria Few /HPF (NONE-FEW) Urine Mucus None /HPF (NONE-FEW) Urine HCG, Qualitative Negative (NEGATIVE) EKG/Imaging Imaging PATIENT NAME: Kaila Arias : 1955 MR: [id number] V: [id number] EXAM DATE: ORDERING PHYSICIAN: JOLENE WASHINGTON [place]CHN[place] [facility] [place] : 1955 Visit/Account:[id number] Date of Sevice: 11/16/2018 CHEST SINGLE AP INDICATION: ET tube placement. COMPARISON: None available FINDINGS: There is a nasogastric tube present with the tip at the level of the GE junction. Staple line is seen at the level of the GE junction, question Adriana fundoplication versus gastric bypass. An endotracheal tube is not visualized. There is no focal infiltrate or lobar consolidation. There is no pneumothorax or pleural effusion. IMPRESSION: 1. An endotracheal tube is not visualized. 2. The nasogastric tube is positioned above the GE junction. There are postsurgical changes at that level, question Adriana fundoplication versus gastr ic bypass Report Dictated By: Tanvir Barrera at 11/16/2018 7:01 PM Report E-Signed By: Tanvir Barrera at 11/16/2018 7:04 PM WSN:[id number] ED Course/Re-evaluation ED Course Patient is a 63-year-old female here with complaints of alcohol overdose, tramadol overdose with suspected 44 tramadol ingestion. Patient was intubated by day provider due to inability to protect airway. Patient was placed on Ativan infusion and then transitions ketamine infusion due to hypotension and lack of adequate sedation. I did discuss the patient with at [facility] due to lack of availability in the ICU. Patient was accepted [facility] and transitioned in stable condition. Patient was suicidal and left suicide notes and will need behavioral health after extubation. Patient did have a history of prior suicide attempts with alcohol and pain medications. Decision to Disposition Date: Nov 16, 2018 Decision to Disposition Time: 20:02 Depart Departure Latest Vital Signs Vital Signs Date Time Temp Pulse Resp B/P (MAP) Pulse Ox O2 Delivery O2 Flow Rate FiO2 11/16/18 19:42 87 14 94 11/16/18 19:40 97/58 (71) 11/16/18 19:34 98.6 Non-Rebreather 11/16/18 18:48 30.0 11/16/18 18:15 10.0 Core Temperature (Celsius): 36.3 Impression: Primary Impression: Suicide attempt by alcohol poisoning Additional Impression: Suicide attempt by other tranquilizer drug overdose Condition: Improved Disposition: XFER TO [facility] ([facility]) Problem Qualifiers DARNELL GONZALEZ DO Nov 16, 2018 19:33
--- NOTE | 2018-11-16 19:35 | EKG ---
FACILITY: [facility] PATIENT NAME: DOUG ARCINIEGA : [id number] MR: [id number] V: [id number] EXAM DATE: ORDERING PHYSICIAN: DARNELL GONZALEZ TECHNOLOGIST: JUNIE Test Reason : OD Blood Pressure : / mmHG Vent. Rate : 089 BPM Atrial Rate : 089 BPM P-R Int : 132 ms QRS Dur : 088 ms QT Int : 396 ms P-R-T Axes : 060 038 075 degrees QTc Int : 481 ms Sinus rhythm Possible biatrial enlargement Nonspecific T wave abnormality Prolonged QT Abnormal ECG Confirmed by DIANE MILNER ([id number] on 11/16/2018 8:58:05 PM Referred By: Confirmed By:DIANE MILNER
[2018-11-16] MEDS ORDERED: KETAMINE HCL 500 MG/5 ML VIAL IVP ONE (20:00)
[2018-11-16] MEDS ORDERED: NS 0.9% IV ONE (20:15)
[2018-11-16] MEDS ORDERED: KETAMINE HCL IV ONE (20:15)
[2018-11-16 20:25] VITALS: BP 99/63
--- NOTE | 2018-11-16 20:38 | RADIOLOGY IMAGING REPORT ---
FACILITY: [facility] PATIENT NAME: Kaila Arias : 1955 MR: [id number] V: [id number] EXAM DATE: ORDERING PHYSICIAN: DARNELL GONZALEZ TECHNOLOGIST: [place] [facility] [place] Ari[place] : 1955 Visit/Account:[id number] Date of Sevice: 11/16/2018 CHEST SINGLE AP INDICATION: ETT Placement COMPARISON: 11/16/2018 FINDINGS: Endotracheal tube is above the thoracic inlet. The endotracheal tube is approximate level of C7. Nasogastric tube is unchanged in position and is within the esophagus but not within the stomach. No infiltrate is identified. IMPRESSION: 1. Endotracheal tube is now visualized at the level of C7. If possible this should be advanced an add itional 5 to 6 cm. Report Dictated By: Tanvir Barrera at 11/16/2018 8:30 PM Report E-Signed By: Tanvir Barrera at 11/16/2018 8:31 PM WSN:[id number]
--- NOTE | 2018-11-17 19:43 | BHS - Psychiatric Evaluation ---
ER - Title 25 MHE Evaluation Title 25 Evaluation Patient Detained By: Law Enforcement Referral Source: Professional : Law Enforcment Date Patient Detained: Nov 16, 2018 Time Patient Detained: 18:30 Date Mcfp Expires: Nov 22, 2018 Time Mcfp Expires: 18:30 Legal Status: Police Hold: No Legal Status: Residence: [facility] Resident, State Resident Assessment Data Provided By: Other Source (Electronic Medical Record) HPI/ROS: From ER Physician, Dr. Rico, "Patient is a 63-year-old female here with complaints of medication and alcohol overdose. Patient reportedly took approximately 44 tramadol with an alcohol level of 300. Patient reportedly left suicide notes at the house. Patient does have a history of prior suicide attempts with alcohol and pain medication. Patient was intubated by dayshift provider at time of arrival due to inability to protect airway." Admit due to SI or Attempt: No [place] [facility] [place] Suicide Plan: Has Plan with Access Current Suicide Plan Patient had an intentional overdose. Alcohol or Drugs Involved: Yes Current Risk & History Current Dangerous Risk Assessm: Current Suicide Ideation Past Dangerous Risk Assessm: Other (Unknown at this time) Previous Suicide Attempt: Past - Low Lethality (Patient physician notes a previous suicide attempt) Previous Psychiatric Illness: Yes (Patients EMR suggests history of a depressive disorder) Previous Psychiatric Treatment: Yes Risk Assessment & Disposition Evaluated Risk Assessment: Unable to assess Impression: Primary Impression: Suicide attempt by alcohol poisoning Additional Impression: Suicide attempt by other tranquilizer drug overdose Meets Mental Illness Req.: Yes Meets Dangerousness Req.: Yes Emergency Mcfp to be: Lifted (Patient was not read her rights. She was intubated and incapacitated. She was also transported to [facility] without legal authority.) Decision Comment: Patient assisted lifted without this examiner ever having seen the patient because the assisted was incorrectly and unlawfully initiated. patient was [facility] the [facility]. The care of all detained patients in [facility] must confer and obtain proper permissions from the [facility]. Date of Decision: Nov 17, 2018 Time of Decision: 18:00 Patient is Medically Stable at: Yes (Confirmation received that patient care has been transferred to [facility] [place] Disposition: Transfer Problem Qualifiers ALEKS MITCHELL LPC Nov 17, 2018 19:43
[2018-11-26] MEDS ORDERED: ATOR10TA24 PO (10:44)
[2018-11-26] MEDS ORDERED: CELE-1 PO (10:44)
[2018-11-26] MEDS ORDERED: LISI-362 PO (10:44)
[2018-11-26] MEDS ORDERED: ESTR1VAG6 VG (11:53)
== END 2018-11-16 20:42 | disposition short-term general hospital (02) ==
LOC: ER 18:29
DX: T40.4X2A Poisoning by other synthetic narcotics, intentional self-harm, initial encounter (principal); F10.129 Alcohol abuse with intoxication, unspecified; Y90.8 Blood alcohol level of 240 mg/100 ml or more; R41.82 Altered mental status, unspecified; I45.81 Long QT syndrome
CPT/HCPCS: 36600; 71045; 80305; 80320; 80329; 81001; 81025; 82803; 83735; 84443; 85025; 93005; 94770; 96361; 96374; 96375; 99285; J0330; J2060; J3490; J7030; J7050; J7060; 82040; 82247; 82310; 82374; 82435; 82565; 82947; 84075; 84132; 84155; 84295; 84450; 84460; 84520; 94002

== ENCOUNTER → 2018-11-16 | Outpatient (CLI) | payer OTHER ==
[2017-09-19 21:41] VITALS: BMI 33.7
[~2018-11-16] MED LIST changes: +THIA100T20 PO; -THIA100T58 PO
== END ==
LOC: AMB 20:17
PROVIDERS: ATTEND Nurse Practitioner
DX: T65.91XA Toxic effect of unspecified substance, accidental (unintentional), initial encounter (principal)
CPT/HCPCS: A0425; A0426

== ENCOUNTER → 2018-11-16 | Outpatient (CLI) | payer OTHER ==
[2017-09-19 21:41] VITALS: BMI 33.7
== END ==
LOC: AMB 17:52
PROVIDERS: ATTEND Nurse Practitioner
DX: R40.20 Unspecified coma (principal)
CPT/HCPCS: A0425; A0427